=== PATIENT | female | born 1935 | race Caucasian/White ===

== ENCOUNTER 2017-02-24 10:39 | Outpatient (CLI) | payer MEDICARE, BC ==
--- NOTE | 2017-02-24 13:05 | CT ---
CT BRAIN NONCONTRAST: DATE: 02-24-17 HISTORY: 81-year-old female status post head trauma. Follow up intracranial hemorrhage. Post-traumatic headac he. Dr. Shane texted Dr. Salcedo regarding the presence of subdural hematoma. COMPARISON: No previous CTs are found under this name at [facility], [facility], [facility], or [facility]. FINDINGS: There is a right supratentorial subdural hematoma overlying the lateral and upper portions of the ri ght frontal lobe,and to a lesser degree the upper parietal lobe. This subdural hematoma has mixed de nsity, with both chronic (lower density) and acute/subacute (high density) material intermixed. This subdural hematoma mildly displaces the adjacent right cerebral hemisphere, but the diffuse, age-rel ated parenchymal volume loss accommodates this hematoma. There is no midline shift of the septum pel lucidum. No obstructive hydrocephalus. The right frontal horn appears mildly displaced inferiorly. T here is no evidence of intraaxial hemorrhage. The calvarium is intact. The transverse diameter of th e subdural hematoma is 10 mm (measured on bone windows at its upper portion, image 22 of 32, series 3). IMPRESSION: Mixed-age (chronic plus acute or subacute components)right supratentorial subdural hematoma, causing mild mass effect upon the right cerebral hemisphere. ADDENDUM: The findings were discussed by telephone with Dr. Salcedo's physician periodontal assistant, Amy Pitts, at 11:51 a.m. and then again at 11:55 a.m. 02-24-17. Code KEVIN Woods POS: JENNA
== END 2017-02-24 10:40 | disposition home or self-care (01) ==
LOC: TBSIIMAG 10:39
PROVIDERS: ATTEND Neurological Surgery
DX: I62.9 Nontraumatic intracranial hemorrhage, unspecified (principal)
CPT/HCPCS: 70450

== ENCOUNTER 2017-04-01 14:42 | Outpatient (CLI) | payer MEDICARE, BC ==
--- NOTE | 2017-04-01 15:54 | CT ---
HEAD CT: CLINICAL HISTORY: Subdural hematoma, followup. COMPARISON: Reference is made to 02/24/17. FINDINGS: Reduced volume of mixed-density extraaxial collection overlying the right convexity measuring up to 4 mm in thickness without associated subfalcine herniation. There is a age-related parenchymal volume loss. Ventricular system is stable in size. No additional significant interval change. IMPRESSION: Reduced volume of mixed density predominantly subacute to chronic right subdural hematoma overlying r ight convexity without associated subfalcine herniation. POS: [facility]
== END 2017-04-01 14:43 | disposition home or self-care (01) ==
LOC: TBSIIMAG 14:42
PROVIDERS: ATTEND Neurological Surgery
DX: S06.5X0A Traumatic subdural hemorrhage without loss of consciousness, initial encounter (principal)
CPT/HCPCS: 70450